=== PATIENT | female | born 1950 | race African-American/Black ===

== ENCOUNTER 2016-09-16 19:35 | Emergency (ER) | payer OTHER, MEDICAID ==
[~2016-09-16] VITALS: Ht 160 cm; Wt 48.9 kg
[~2016-09-16 19:35] MED LIST: UNKNOWN BP MEDS; [UNRECOGNIZED DRUG - REMARK]
[2016-09-16] MEDS ORDERED: KETOROLAC 60MG/2ML VIAL IM ONE (22:15)
[2016-09-16 22:46] VITALS: BP 108/62
== END 2016-09-17 00:32 | disposition home or self-care (01) ==
LOC: ER 19:35
DX: H10.89 Other conjunctivitis (principal); I10 Essential (primary) hypertension; Z90.710 Acquired absence of both cervix and uterus
CPT/HCPCS: 96372; 99283; J1885

== ENCOUNTER 2022-01-07 11:55 | Emergency (ER) | payer OTHER, MEDICAID ==
[~2022-01-07] VITALS: Ht 160 cm; Wt 73.0 kg
[2022-01-07] MEDS ORDERED: FLUORESCEIN SODIUM 1MG/STRIP LEFTEYE ONE (14:00)
[2022-01-07] MEDS ORDERED: TETRACAINE 0.5% OPHTH DROPS 4ML LEFTEYE ONE (14:00)
[2022-01-07] MEDS ORDERED: POLY10DR3 LEFTEYE (14:54)
[2022-01-07 15:20] VITALS: BP 112/78
== END 2022-01-07 15:03 | disposition home or self-care (01) ==
LOC: ER 11:55
DX: H10.9 Unspecified conjunctivitis (principal); I10 Essential (primary) hypertension; Z90.710 Acquired absence of both cervix and uterus
CPT/HCPCS: 99283